=== PATIENT | male | born 1945 | race Caucasian/White ===

== ENCOUNTER → 2016-08-10 | Outpatient (CLI) | payer MEDICARE ==
[~2016-08-10] MED LIST: 'zithromax250 MG PO; ACTONEL150 MG PO; AMOXICILLIN500 MG PO; ANTIVERT/2525 M1 PO; ASPIRIN81 MG PO; ATIVAN1 MG PO; ATROVENT I0.5 MG/2.1 INH; BISACODYL LAXATI5 MG PO; BISACODYL5 MG PO; BROVANA15 MCG/2 M INH; CADUET PO; CENTRUM SILVER1 EAC3 PO; CEPHALEXIN500 M1 PO; CLARITIN10 MG PO; COZAAR100 MG PO; DOXYCYCLINE MO100 MG PO; FLONASE 0.05% 121 EA NAS; FLONASE ALLERG9.9 ML NS; FLOVENT HFA10.6 GM IH; FOSAMAX40 MG PO; FOSAMAX70 MG PO; HYDROXYZINE HCL25 M1 PO; LISINOPRIL10 MG PO; LORAZEPAM0.5 MG PO; LOTREL 10 MG-201 CAP PO; MEDROL DOSEPAK4 MG PO; MOBIC15 MG PO; MOTRIN IB200 MG PO; MOTRIN600 MG PO; MUCINEX600 MG PO; NITROSTAT0.4 MG SL; NORTRIPTYLINE10 MG PO; NORTRIPTYLINE25 MG PO; NORVASC5 MG PO; OMEPRAZOLE20 M2 PO; PHENERGAN W/DM120 ML PO; PLAVIX75 MG PO; PRAVASTATIN SOD20 MG PO; PRAVASTATIN SOD40 MG PO; PREDNICOT20 MG PO; QVAR0.08 MG/AC INH; REMERON15 MG PO; SYMBICORT1 AER IH; SYMBICORT1 AER INH; TESSALON PERLE100 M1 PO; TOPROL XL25 MG PO; VENTOLIN 02.5 MG/3 M INH; VIBRAMYCIN100 MG PO; VITAMIN D50000 I2 PO; VITAMIN D50000 I3 PO; Ventolin 02.5 MG/3 M INH; ZANTAC150 MG PO; ZITHROMAX Z PA250 MG PO; ZYRTEC10 MG PO
== END | disposition home or self-care (01) ==
LOC: RAD 15:35
DX: M25.561 Pain in right knee (principal)

== ENCOUNTER → 2017-06-01 | Outpatient (CLI) | payer MEDICARE ==
[2017-06-01 10:11] LABS: BUN 16 mg/dl (7-24); CHLORIDE 100 mmol/L (98-107); CHOLESTEROL 180 mg/dL (<200); CREATININE 1.27 mg/dL (0.70-1.30); POTASSIUM 4.1 mmol/L (3.5-5.1); SGOT/AST 16 IU/L (3-35); SGPT/ALT 17 U/L (12-78); SODIUM 136 mmol/L (136-145); TRIGLYCERIDES 138 mg/dl (<150); VLDL CHOLESTEROL 28 mg/dL (6-40)
[2017-06-01 10:12] LABS: HDL CHOLESTEROL 63 mg/dl (40-60); LDL CHOLESTEROL 89 mg/dL (9-159)
== END | disposition home or self-care (01) ==
LOC: LAB 09:21
PROVIDERS: Internal Medicine Cardiovascular Disease
DX: I10 Essential (primary) hypertension (principal)

== ENCOUNTER → 2017-09-07 | Outpatient (CLI) | payer MEDICARE ==
[2017-09-07 09:58] LABS: BUN 11 mg/dl (7-24); CHLORIDE 104 mmol/L (98-107); CREATININE 1.14 mg/dL (0.70-1.30); POTASSIUM 4.3 mmol/L (3.5-5.1); SODIUM 140 mmol/L (136-145)
== END | disposition home or self-care (01) ==
LOC: LAB 09:06
PROVIDERS: Internal Medicine Cardiovascular Disease
DX: I10 Essential (primary) hypertension (principal)

== ENCOUNTER → 2018-02-22 | Outpatient (CLI) | payer MEDICARE ==
[2018-02-22 09:46] LABS: BASO # 0.1 10*3/uL (0.0-0.1); BASO % 1.2 % (0.0-1.0); EOS # 0.5 10*3/uL (0.0-0.4); EOS % 8.5 % (1.0-4.0); HEMATOCRIT 45.8 % (42.0-52.0); HEMOGLOBIN 15.1 g/dl (14.0-18.0); LYMPH # 1.2 10*3/uL (1.3-4.4); LYMPH % 20.1 % (27.0-41.0); MEAN CELL VOLUME 94.8 fl (80.0-94.0); MEAN CORPUSCULAR HGB 31.3 pg (27.0-31.0); MEAN PLATELET VOLUME 8.9 fl (9.6-12.3); MONO # 0.5 10*3/uL (0.1-1.0); MONO % 8.6 % (3.0-9.0); NEUT # 3.7 10*3/uL (2.3-7.9); NEUT % 61.3 % (47.0-73.0); PLATELET COUNT AUTOMATED 252 10*3/uL (130-400); RED BLOOD COUNT 4.83 10*6/uL (4.50-5.90); RED CELL DISTRI WIDTH 12.2 % (0-14.5)
[2018-02-22 10:09] LABS: BUN 11 mg/dl (7-24); CHLORIDE 100 mmol/L (98-107); CHOLESTEROL 164 mg/dL (<200); CREATININE 1.14 mg/dL (0.70-1.30); POTASSIUM 4.1 mmol/L (3.5-5.1); SGOT/AST 17 IU/L (3-35); SGPT/ALT 19 U/L (12-78); SODIUM 137 mmol/L (136-145); TRIGLYCERIDES 99 mg/dl (<150); VLDL CHOLESTEROL 20 mg/dL (6-40)
[2018-02-22 10:10] LABS: HDL CHOLESTEROL 60 mg/dl (40-60); LDL CHOLESTEROL 84 mg/dL (9-159)
== END | disposition home or self-care (01) ==
LOC: LAB 08:51
PROVIDERS: Internal Medicine Cardiovascular Disease
DX: I10 Essential (primary) hypertension (principal); I25.10 Atherosclerotic heart disease of native coronary artery without angina pectoris

== ENCOUNTER 2018-03-20 | Emergency (ER) | payer MEDICARE | END 2018-03-20 10:40 | disposition home or self-care (01) | DX: H11.31 Conjunctival hemorrhage, right eye (principal); Z79.82 Long term (current) use of aspirin; Z79.899 Other long term (current) drug therapy ==

== ENCOUNTER → 2019-03-02 | Outpatient (CLI) | payer MEDICARE ==
[2019-03-02 10:38] LABS: BUN 12 mg/dl (7-24); CHLORIDE 103 mmol/L (98-107); CREATININE 1.12 mg/dL (0.70-1.30); POTASSIUM 4.1 mmol/L (3.5-5.1); SODIUM 138 mmol/L (136-145)
== END | disposition home or self-care (01) ==
LOC: LAB 09:37
PROVIDERS: Internal Medicine Cardiovascular Disease
DX: I25.10 Atherosclerotic heart disease of native coronary artery without angina pectoris (principal)

== ENCOUNTER 2019-05-05 15:02 | Emergency (ER) | payer MEDICARE ==
[~2019-05-05] VITALS: Wt 49.0 kg
[2019-05-05 17:44] LABS: BASO # 0.1 10*3/uL (0.0-0.1); BASO % 0.5 % (0.0-1.0); EOS # 0.3 10*3/uL (0.0-0.4); EOS % 1.7 % (1.0-4.0); HEMATOCRIT 42.4 % (42.0-52.0); HEMOGLOBIN 13.9 g/dl (14.0-18.0); LYMPH # 0.9 10*3/uL (1.3-4.4); LYMPH % 6.4 % (27.0-41.0); MEAN CORPUSCULAR HGB 31.8 pg (27.0-31.0); MEAN CORPUSCULAR HGB CONC 32.8 g/dl (33.0-37.0); MEAN PLATELET VOLUME 8.9 fl (9.6-12.3); MONO # 0.6 10*3/uL (0.1-1.0); MONO % 3.9 % (3.0-9.0); NEUT # 12.7 10*3/uL (2.3-7.9); NEUT % 87.1 % (47.0-73.0); PLATELET COUNT AUTOMATED 260 10*3/uL (130-400); RED BLOOD COUNT 4.37 10*6/uL (4.50-5.90); RED CELL DISTRI WIDTH 12.8 % (0-14.5); WHITE BLOOD COUNT 14.6 10*3/uL (4.8-10.8)
[2019-05-05 17:55] LABS: ACT PARTIAL THROMBO TIME 24.2 SECONDS (20.0-32.1); BUN 15 mg/dl (7-24); CHLORIDE 106 mmol/L (98-107); CREATININE 1.32 mg/dL (0.70-1.30); INTERNATIONAL NORM RATIO 0.9 (2.0-3.5); POTASSIUM 4.4 mmol/L (3.5-5.1); SODIUM 138 mmol/L (136-145)
== END 2019-05-05 18:50 | disposition short-term general hospital (02) ==
LOC: ED 15:02
PROVIDERS: Nurse Practitioner Family
DX: R04.0 Epistaxis (principal); J44.9 Chronic obstructive pulmonary disease, unspecified; K21.9 Gastro-esophageal reflux disease without esophagitis; I25.10 Atherosclerotic heart disease of native coronary artery without angina pectoris; Z79.899 Other long term (current) drug therapy; Z79.2 Long term (current) use of antibiotics; F41.9 Anxiety disorder, unspecified; M19.90 Unspecified osteoarthritis, unspecified site

== ENCOUNTER 2019-05-10 08:08 | Inpatient (IN) | payer MEDICARE ==
[~2019-05-10] VITALS: Ht 170.2 cm; Wt 56.4 kg
[2019-05-10] VITALS (7 sets, daily range): BP systolic 96–146; BP diastolic 50–76
[2019-05-10 09:13] LABS: BASO % 0.3 % (0.0-1.0); EOS # 0.3 10*3/uL (0.0-0.4); EOS % 1.7 % (1.0-4.0); HEMOGLOBIN 9.2 g/dl (14.0-18.0); LYMPH % 6.8 % (27.0-41.0); MEAN CELL VOLUME 95.9 fl (80.0-94.0); MEAN CORPUSCULAR HGB 31.5 pg (27.0-31.0); MEAN CORPUSCULAR HGB CONC 32.9 g/dl (33.0-37.0); MEAN PLATELET VOLUME 8.9 fl (9.6-12.3); MONO # 1.3 10*3/uL (0.1-1.0); MONO % 9.1 % (3.0-9.0); NEUT % 81.2 % (47.0-73.0); PLATELET COUNT AUTOMATED 331 10*3/uL (130-400); RED BLOOD COUNT 2.92 10*6/uL (4.50-5.90); RED CELL DISTRI WIDTH 13.3 % (0-14.5); WHITE BLOOD COUNT 14.7 10*3/uL (4.8-10.8)
[2019-05-10 09:24] LABS: ACT PARTIAL THROMBO TIME 27.6 SECONDS (20.0-32.1); INTERNATIONAL NORM RATIO 0.9 (2.0-3.5)
[2019-05-10 09:24] LABS: ALBUMIN 3.2 gm/dl (3.1-4.5); CREATININE 2.25 mg/dL (0.70-1.30); TOTAL PROTEIN 6.8 gm/dL (6.4-8.2)
[2019-05-10 09:25] LABS: BILIRUBIN NEGATIVE (NEGATIVE); BLOOD TRACE-INTACT (NEGATIVE); CLARITY CLEAR (CLEAR); COLOR YELLOW (YELLOW); GLUCOSE NEGATIVE (NEGATIVE); KETONE NEGATIVE (NEGATIVE)
[2019-05-10 09:26] LABS: BACTERIA TRACE; LEUKO ESTERASE NEGATIVE (NEGATIVE); MUCOUS TRACE; NITRITE NEGATIVE (NEGATIVE); PH 5.5 (5.0-9.0); UROBILINOGEN 0.2 E.U./dl (0.2-1.0)
--- NOTE | 2019-05-10 10:47 | NUR ---
PATIENT NOTED TO HAVE 1700 IN WELDON BAG, PT STATES THAT HE FEELS SO MUCH BETTER. PATIENT WAS ASLEEP PRIOR TO THIS NURSE ENTERING ROOM. DENIES THE NEED OF ANYTHING AT THIS TIME. VITALS STABLE. CALL LIGHT WITHIN REACH.
--- NOTE | 2019-05-10 12:15 | NUR ---
Time: 1214 A 73 year old MALE admitted to 5E under services of TY BERNARD DO. Pt. arrived via stretcher from ER. Chief complaint: STOMACH PAIN AND NOSE BLEED. INITIAL ASSESSMENT WAS COMPLETED. PT HAS NO COMPLAINTS AT THIS TIME. HOME MEDICATION LIST WAS COMPLETED. [place]
[2019-05-10] MEDS ORDERED: MAGNESIUM200 MG PO (12:34)
[2019-05-10] MEDS ORDERED: VITAMIN D32000 UNI1 PO (12:36)
--- NOTE | 2019-05-10 17:37 | NUR ---
MET WITH CLIENT AT HIS REQUEST HE IS A CLIENT IN MY OFFICE, I DID VISIT HIM AND SO DID HIS CM IRMA, HE REPORTS HE FEELS A LITTLE BUT BETTER, CLIENT RESIDES [place], HE HAS NO FAMILY. HE WAS JUST DC ON TUESDAY FROM [facility] FOR A NOSE BLEED. PROVIDED CLIENT WITH SUPPORT.
--- NOTE | 2019-05-10 17:43 | NUR ---
CALLED DR. BOOTH AND NOIFIED HIM THAT HOME MEDS WERE READY TO BE ORDERED.
--- NOTE | 2019-05-10 20:48 | NUR ---
24 HR chart check completed.
--- NOTE | 2019-05-10 21:00 | NUR ---
RESTING IN BED WITH NO DISTRESS NOTED. RESPIRATIONS EASY. LUNGS DIMINISHED, CLEAR. PULSE OX 100% RA. ABD SOFT WITH HYPOACTIVE BOWEL SOUNDS, DENIES ABD PAIN. WELDON PATENT. +2 PITTNG BLE. CALL LIGHT WITHIN REACH. NO VOICED COMPLAINTS
[2019-05-11] VITALS: BP 114/62
--- NOTE | 2019-05-11 | NUR ---
SLEEPING. NO DISTRESS NOTED. RESPIRATIONS EASY. VSS. IV FLUIDS MAINTAINED. CALL LIGHT WITHIN REACH
--- NOTE | 2019-05-11 06:00 | NUR ---
SLEPT THROUGHOUT NIGHT WITH NO DISTRESS NOTED. RESPIRATIONS EASY. IV FLUIDS MAINTAINED. CALL LIGHT WITHIN REACH. NO VOICED COMPLAINTS THIS SHIFT
[2019-05-11 06:21] LABS: BASO % 0.4 % (0.0-1.0); EOS # 0.4 10*3/uL (0.0-0.4); EOS % 4.6 % (1.0-4.0); HEMATOCRIT 22.1 % (42.0-52.0); HEMOGLOBIN 7.2 g/dl (14.0-18.0); LYMPH % 12.7 % (27.0-41.0); MEAN CELL VOLUME 97.8 fl (80.0-94.0); MEAN CORPUSCULAR HGB 31.9 pg (27.0-31.0); MEAN CORPUSCULAR HGB CONC 32.6 g/dl (33.0-37.0); MEAN PLATELET VOLUME 9.1 fl (9.6-12.3); MONO # 0.7 10*3/uL (0.1-1.0); MONO % 8.3 % (3.0-9.0); NEUT # 5.9 10*3/uL (2.3-7.9); NEUT % 73.1 % (47.0-73.0); PLATELET COUNT AUTOMATED 244 10*3/uL (130-400); RED BLOOD COUNT 2.26 10*6/uL (4.50-5.90); RED CELL DISTRI WIDTH 13.6 % (0-14.5)
[2019-05-11 06:34] LABS: BUN 17 mg/dl (7-24); CHLORIDE 107 mmol/L (98-107); CHOLESTEROL 93 mg/dL (<200); PHOSPHOROUS 2.9 mg/dL (2.5-4.9); POTASSIUM 3.2 mmol/L (3.5-5.1); SODIUM 138 mmol/L (136-145); TRIGLYCERIDES 75 mg/dl (<150); VLDL CHOLESTEROL 15 mg/dL (6-40)
[2019-05-11 06:45] LABS: CREATININE 1.23 mg/dL (0.70-1.30); HDL CHOLESTEROL 48 mg/dl (40-60); LDL CHOLESTEROL 30 mg/dL (9-159)
[2019-05-11 08:00] VITALS: BP 110/60; BP 92/59
--- NOTE | 2019-05-11 08:15 | NUR ---
Manager Harbor in to talk to patient. Patient states lives at home alone with his family/friends checking in on him. There are 0 steps in the home. Physician: Ender Severino Pharmacy: [facility] Home health services: none Patient's level of ADLs: INDEPENDENT Patient has working utilities: yes DME: none Follow-up physician's appointment after d/c: will be made by the hospitalist nurse director upon discharge Does patient want to access PORTAL?: no Discharge plan discussed with patient. He lives at home with his family/friends checking in on him. He states he is independent in his ADLs and ambulation. When asked if he uses a walker or a cane, he states "no I walk with my legs." Discussed home health care services and he denies any home needs at this time. When medically stable he will be discharged to home. He states either Sarah or Arina will provide transportation on discharge. ANTOLIN RBOWNLEE
[2019-05-11 12:00] VITALS: BP 113/68
[2019-05-11 12:14] LABS: HEMATOCRIT 22.8 % (42.0-52.0); HEMOGLOBIN 7.6 g/dl (14.0-18.0)
[2019-05-11 16:00] VITALS: BP 106/55
[2019-05-11 20:00] VITALS: BP 126/59
--- NOTE | 2019-05-11 20:00 | NUR ---
Patient resting quietly with no c/o discomfort. Respirations easy and regular. Vital signs stable. No overt distress. ARIADNA HIDALGO
[2019-05-12] VITALS: BP 136/67
--- NOTE | 2019-05-12 05:39 | NUR ---
24 HR chart check completed.
[2019-05-12 06:22] LABS: BASO % 0.4 % (0.0-1.0); EOS # 0.5 10*3/uL (0.0-0.4); EOS % 5.7 % (1.0-4.0); HEMATOCRIT 22.2 % (42.0-52.0); HEMOGLOBIN 7.4 g/dl (14.0-18.0); LYMPH # 0.9 10*3/uL (1.3-4.4); MEAN CELL VOLUME 95.7 fl (80.0-94.0); MEAN CORPUSCULAR HGB 31.9 pg (27.0-31.0); MEAN CORPUSCULAR HGB CONC 33.3 g/dl (33.0-37.0); MEAN PLATELET VOLUME 8.7 fl (9.6-12.3); MONO # 0.7 10*3/uL (0.1-1.0); MONO % 8.6 % (3.0-9.0); NEUT % 73.2 % (47.0-73.0); PLATELET COUNT AUTOMATED 261 10*3/uL (130-400); RED BLOOD COUNT 2.32 10*6/uL (4.50-5.90); RED CELL DISTRI WIDTH 13.7 % (0-14.5); RETICULOCYTE % 3.97 % (0.50-2.50); WHITE BLOOD COUNT 8.1 10*3/uL (4.8-10.8)
[2019-05-12 06:52] LABS: ALBUMIN 2.4 gm/dl (3.1-4.5); BUN 12 mg/dl (7-24); CHLORIDE 109 mmol/L (98-107); CREATININE 0.96 mg/dL (0.70-1.30); IRON 17 ug/dL (65-175); POTASSIUM 3.9 mmol/L (3.5-5.1); SGOT/AST 16 IU/L (3-35); SGPT/ALT 13 U/L (12-78); SODIUM 139 mmol/L (136-145); TOTAL IRON BINDING CAPACITY 211 ug/dl (250-450); TOTAL PROTEIN 5.5 gm/dL (6.4-8.2)
[2019-05-12 06:53] LABS: ALKALINE PHOSPHATASE 57 U/L (45-117)
[2019-05-12 07:59] LABS: FERRITIN 44.7 ng/mL (22.0-322.0)
[2019-05-12 08:00] VITALS: BP 138/79
[2019-05-12] MEDS ORDERED: FINASTERIDE5 M1 PO (10:23)
[2019-05-12] MEDS ORDERED: TAMSULOSIN HCL0.4 MG PO (10:23)
--- NOTE | 2019-05-12 11:31 | NUR ---
IRMA LANE PATIENTS SEAMER WILL BE ABLE TO SCHEDULE A FOLLOW UP APPT FOR UROLOGY ON TuesdayMAY 14. LIST OF AVAILABLE UROLOGIST SENT HOME WITH PATIENT
[2019-05-12 12:00] VITALS: BP 142/68
--- NOTE | 2019-05-12 13:32 | NUR ---
Discharge instructions reviewed with patient/family. Patient receptive and verbalizes understanding. Follow-up care arranged. Written instructions given to patient/family. PT DEMONSTRATED PROPER TECHNIQUE ON HOW TO EMPTY HIS WELDON LEG BAG. APOLLO RAI
== END 2019-05-12 13:30 | disposition home or self-care (01) | DRG 725 ==
LOC: ED 08:08 → 5E 11:30 → EDHOLD 11:30 → 5E 11:32
PROVIDERS: Emergency Medicine; Internal Medicine; Registered Nurse; ADMIT Internal Medicine
DX: N40.1 Benign prostatic hyperplasia with lower urinary tract symptoms (principal); N17.0 Acute kidney failure with tubular necrosis; E87.1 Hypo-osmolality and hyponatremia; E44.0 Moderate protein-calorie malnutrition; Z68.1 Body mass index [BMI] 19.9 or less, adult; R33.8 Other retention of urine; R39.14 Feeling of incomplete bladder emptying; I10 Essential (primary) hypertension; J44.9 Chronic obstructive pulmonary disease, unspecified; K21.9 Gastro-esophageal reflux disease without esophagitis; E87.6 Hypokalemia; D50.0 Iron deficiency anemia secondary to blood loss (chronic); I25.10 Atherosclerotic heart disease of native coronary artery without angina pectoris; Z95.5 Presence of coronary angioplasty implant and graft; Z79.82 Long term (current) use of aspirin; Z79.899 Other long term (current) drug therapy

== ENCOUNTER 2019-06-04 12:38 | Inpatient (IN) | payer MEDICARE ==
[~2019-06-04] VITALS: Ht 165.1 cm; Wt 58.1 kg
[~2019-06-04 12:38] MED LIST changes: +FINASTERIDE5 M1 PO; +MAGNESIUM200 MG PO; +TAMSULOSIN HCL0.4 MG PO; +VITAMIN D32000 UNI1 PO
[2019-06-04 12:39] VITALS: BP 114/79
[2019-06-04 13:32] VITALS: BP 97/50
[2019-06-04 13:38] LABS: HEMATOCRIT 28.9 % (42.0-52.0); HEMOGLOBIN 9.6 g/dl (14.0-18.0); MEAN CELL VOLUME 87.3 fl (80.0-94.0); MEAN CORPUSCULAR HGB CONC 33.2 g/dl (33.0-37.0); MEAN PLATELET VOLUME 9.2 fl (9.6-12.3); PLATELET COUNT AUTOMATED 321 10*3/uL (130-400); RED BLOOD COUNT 3.31 10*6/uL (4.50-5.90); RED CELL DISTRI WIDTH 15.3 % (0-14.5)
[2019-06-04 13:48] LABS: ACT PARTIAL THROMBO TIME 32.9 SECONDS (20.0-32.1)
[2019-06-04 13:55] LABS: ALBUMIN 2.3 gm/dl (3.1-4.5); ALKALINE PHOSPHATASE 116 U/L (45-117); BUN 87 mg/dl (7-24); CHLORIDE 87 mmol/L (98-107); CREATININE 5.95 mg/dL (0.70-1.30); LIPASE 168 U/L (73-393); POTASSIUM 5.1 mmol/L (3.5-5.1); SGOT/AST 25 IU/L (3-35); SGPT/ALT 32 U/L (12-78); SODIUM 120 mmol/L (136-145); TOTAL PROTEIN 7.4 gm/dL (6.4-8.2)
[2019-06-04 14:00] LABS: BURR CELLS MODERATE; PLATELET SUFFICIENCY NORMAL (NORMAL); TOTAL CELLS COUNTED 100 #CELLS; TOXIC GRANULATION MODERATE; TROPONIN I < 0.015 ng/ml (<0.045)
[2019-06-04 14:21] VITALS: BP 102/66
[2019-06-04 17:00] VITALS: BP 96/63
[2019-06-04 17:51] LABS: CREATININE 6.01 mg/dL (0.70-1.30); POTASSIUM 5.3 mmol/L (3.5-5.1)
[2019-06-04 18:41] LABS: BILIRUBIN NEGATIVE (NEGATIVE); CLARITY TURBID (CLEAR); COLOR YELLOW (YELLOW); GLUCOSE NEGATIVE (NEGATIVE); KETONE NEGATIVE (NEGATIVE)
[2019-06-04 18:42] LABS: BLOOD 2+ (NEGATIVE); LEUKO ESTERASE 3+ (NEGATIVE); NITRITE NEGATIVE (NEGATIVE); UROBILINOGEN 0.2 E.U./dl (0.2-1.0)
[2019-06-04 18:46] LABS: BACTERIA 4+; WBC TNTC wbc/hpf (0-5)
[2019-06-04 18:50] VITALS: BP 127/81
[2019-06-04] MEDS ORDERED: PLAVIX75 M1 PO (19:13)
[2019-06-05] VITALS: BP 120/80
[2019-06-05 03:19] LABS: HEMOGLOBIN 9.4 g/dl (14.0-18.0); MEAN CELL VOLUME 87.2 fl (80.0-94.0); MEAN CORPUSCULAR HGB 29.3 pg (27.0-31.0); MEAN CORPUSCULAR HGB CONC 33.6 g/dl (33.0-37.0); MEAN PLATELET VOLUME 8.8 fl (9.6-12.3); PLATELET COUNT AUTOMATED 329 10*3/uL (130-400); RED BLOOD COUNT 3.21 10*6/uL (4.50-5.90); RED CELL DISTRI WIDTH 15.5 % (0-14.5); WHITE BLOOD COUNT 24.7 10*3/uL (4.8-10.8)
[2019-06-05 03:34] LABS: CREATININE 5.74 mg/dL (0.70-1.30); FREE T4 0.92 ng/dl (0.76-1.46); TOTAL PROTEIN 6.6 gm/dL (6.4-8.2)
[2019-06-05 03:57] LABS: THYROID STIM HORMONE (HS) 1.01 uIU/ml (0.358-4.75)
[2019-06-05 04:37] LABS: ATYPICAL LYMPHS 1 % (0-0); PLATELET SUFFICIENCY NORMAL (NORMAL); TOTAL CELLS COUNTED 100 #CELLS
[2019-06-05 05:37] LABS: URINE CREATININE RANDOM 60.3 mg/dL
[2019-06-05 09:00] VITALS: BP 117/68
[2019-06-05 12:00] VITALS: BP 129/74
[2019-06-05 13:10] LABS: CREATININE 5.51 mg/dL (0.70-1.30); PHOSPHOROUS 5.7 mg/dL (2.5-4.9); POTASSIUM 4.6 mmol/L (3.5-5.1)
[2019-06-05 16:00] VITALS: BP 122/74
[2019-06-05 18:33] LABS: ALBUMIN 1.7 gm/dl (3.1-4.5); CREATININE 5.21 mg/dL (0.70-1.30); PHOSPHOROUS 5.5 mg/dL (2.5-4.9); POTASSIUM 4.4 mmol/L (3.5-5.1)
[2019-06-05 20:00] VITALS: BP 111/73
[2019-06-06] VITALS: BP 102/76
[2019-06-06 00:47] LABS: ALBUMIN 1.8 gm/dl (3.1-4.5); CREATININE 5.12 mg/dL (0.70-1.30); PHOSPHOROUS 5.6 mg/dL (2.5-4.9); POTASSIUM 4.4 mmol/L (3.5-5.1)
[2019-06-06 06:30] LABS: HEMATOCRIT 26.6 % (42.0-52.0); HEMOGLOBIN 8.7 g/dl (14.0-18.0); MEAN CELL VOLUME 89.3 fl (80.0-94.0); MEAN CORPUSCULAR HGB 29.2 pg (27.0-31.0); MEAN CORPUSCULAR HGB CONC 32.7 g/dl (33.0-37.0); MEAN PLATELET VOLUME 9.1 fl (9.6-12.3); PLATELET COUNT AUTOMATED 316 10*3/uL (130-400); RED BLOOD COUNT 2.98 10*6/uL (4.50-5.90); RED CELL DISTRI WIDTH 15.9 % (0-14.5); WHITE BLOOD COUNT 26.2 10*3/uL (4.8-10.8)
[2019-06-06 06:54] LABS: CREATININE 4.87 mg/dL (0.70-1.30); POTASSIUM 4.4 mmol/L (3.5-5.1)
[2019-06-06 07:13] LABS: BURR CELLS FEW; PLATELET SUFFICIENCY NORMAL (NORMAL); TOTAL CELLS COUNTED 100 #CELLS; TOXIC GRANULATION MODERATE
[2019-06-06 08:00] VITALS: BP 119/100
[2019-06-06 10:26] VITALS: BP 100/60
[2019-06-06 12:00] VITALS: BP 121/83
[2019-06-06 16:00] VITALS: BP 120/76
[2019-06-06 16:11] LABS: ALBUMIN 1.8 gm/dl (3.1-4.5); CREATININE 4.67 mg/dL (0.70-1.30); PHOSPHOROUS 4.8 mg/dL (2.5-4.9); POTASSIUM 4.3 mmol/L (3.5-5.1)
[2019-06-06 16:34] LABS: URINE CHLORIDE, RANDOM < 10 mmol/L
[2019-06-06 20:00] VITALS: BP 105/58
[2019-06-07] VITALS: BP 100/67
[2019-06-07 06:10] LABS: HEMATOCRIT 27.1 % (42.0-52.0); HEMOGLOBIN 8.9 g/dl (14.0-18.0); MEAN CELL VOLUME 88.9 fl (80.0-94.0); MEAN CORPUSCULAR HGB 29.2 pg (27.0-31.0); MEAN CORPUSCULAR HGB CONC 32.8 g/dl (33.0-37.0); MEAN PLATELET VOLUME 8.9 fl (9.6-12.3); PLATELET COUNT AUTOMATED 357 10*3/uL (130-400); RED BLOOD COUNT 3.05 10*6/uL (4.50-5.90); RED CELL DISTRI WIDTH 16.1 % (0-14.5); WHITE BLOOD COUNT 22.6 10*3/uL (4.8-10.8)
[2019-06-07 06:38] LABS: ALBUMIN 1.8 gm/dl (3.1-4.5); CREATININE 4.4 mg/dL (0.70-1.30); PLATELET SUFFICIENCY NORMAL (NORMAL); POTASSIUM 4.5 mmol/L (3.5-5.1); TOTAL CELLS COUNTED 100 #CELLS; TOTAL PROTEIN 6.3 gm/dL (6.4-8.2)
[2019-06-07 08:00] VITALS: BP 98/76
[2019-06-07 09:00] VITALS: BP 112/68
[2019-06-07 12:00] VITALS: BP 115/67
[2019-06-07 16:00] VITALS: BP 126/85
[2019-06-07 20:00] VITALS: BP 129/68
[2019-06-08] VITALS: BP 132/67
[2019-06-08 06:12] LABS: HEMATOCRIT 25.9 % (42.0-52.0); HEMOGLOBIN 8.5 g/dl (14.0-18.0); MEAN CELL VOLUME 86.9 fl (80.0-94.0); MEAN CORPUSCULAR HGB 28.5 pg (27.0-31.0); MEAN CORPUSCULAR HGB CONC 32.8 g/dl (33.0-37.0); MEAN PLATELET VOLUME 8.6 fl (9.6-12.3); PLATELET COUNT AUTOMATED 389 10*3/uL (130-400); RED BLOOD COUNT 2.98 10*6/uL (4.50-5.90); RED CELL DISTRI WIDTH 16.3 % (0-14.5); WHITE BLOOD COUNT 17.2 10*3/uL (4.8-10.8)
[2019-06-08 06:21] LABS: CREATININE 3.96 mg/dL (0.70-1.30); POTASSIUM 4.6 mmol/L (3.5-5.1)
[2019-06-08 07:09] LABS: ATYPICAL LYMPHS 1 % (0-0); PLATELET SUFFICIENCY NORMAL (NORMAL); SCHISTOCYTES FEW; TARGET CELLS FEW; TOTAL CELLS COUNTED 100 #CELLS
[2019-06-08 07:10] LABS: POLYCHROMASIA SLIGHT; TOXIC GRANULATION SLIGHT
[2019-06-08 08:51] VITALS: BP 124/78
[2019-06-08] MEDS ORDERED: LEVOFLOXACIN500 MG PO (11:05)
== END 2019-06-08 12:46 | disposition home or self-care (01) | DRG 871 ==
LOC: ED 12:38 → 5E 15:31 → 4E 15:31 → EDHOLD 15:31 → 5E 18:01 → 4E 06-05 18:39
PROVIDERS: Emergency Medicine; Family Medicine; Internal Medicine; Internal Medicine Nephrology; Registered Nurse; Student in an Organized Health Care Education/Training Program; ADMIT Internal Medicine
DX: A41.59 Other Gram-negative sepsis (principal); J18.9 Pneumonia, unspecified organism; N17.0 Acute kidney failure with tubular necrosis; E43 Unspecified severe protein-calorie malnutrition; E87.1 Hypo-osmolality and hyponatremia; N12 Tubulo-interstitial nephritis, not specified as acute or chronic; E87.8 Other disorders of electrolyte and fluid balance, not elsewhere classified; E83.41 Hypermagnesemia; R73.9 Hyperglycemia, unspecified; I10 Essential (primary) hypertension; K21.9 Gastro-esophageal reflux disease without esophagitis; I25.10 Atherosclerotic heart disease of native coronary artery without angina pectoris; N40.0 Benign prostatic hyperplasia without lower urinary tract symptoms; D64.9 Anemia, unspecified; E83.39 Other disorders of phosphorus metabolism; N39.9 Disorder of urinary system, unspecified; E87.5 Hyperkalemia; Z95.5 Presence of coronary angioplasty implant and graft; Z79.899 Other long term (current) drug therapy; J43.9 Emphysema, unspecified; Z68.21 Body mass index [BMI] 21.0-21.9, adult

== ENCOUNTER → 2019-07-30 | Outpatient (CLI) | payer MEDICARE ==
[~2019-07-30] MED LIST changes: +LEVOFLOXACIN500 MG PO; +PLAVIX75 M1 PO
[2019-07-30 13:37] LABS: BACTERIA 2+; BILIRUBIN NEGATIVE (NEGATIVE); BLOOD TRACE-INTACT (NEGATIVE); CLARITY SL CLOUDY (CLEAR); COLOR YELLOW (YELLOW); GLUCOSE NEGATIVE (NEGATIVE); KETONE NEGATIVE (NEGATIVE); LEUKO ESTERASE 3+ (NEGATIVE); MUCOUS TRACE; NITRITE POSITIVE (NEGATIVE); SPECIFIC GRAVITY 1.005 (1.005-1.030); UROBILINOGEN 0.2 E.U./dl (0.2-1.0)
[2019-07-30 13:52] LABS: CREATININE 1.58 mg/dL (0.70-1.30); POTASSIUM 4.2 mmol/L (3.5-5.1)
== END | disposition home or self-care (01) ==
LOC: LAB 12:24
PROVIDERS: Urology
DX: J43.9 Emphysema, unspecified (principal); Z01.818 Encounter for other preprocedural examination

== ENCOUNTER → 2019-10-02 | Outpatient (CLI) | payer MEDICARE | END | disposition home or self-care (01) | LOC: RAD 15:32 | DX: J43.9 Emphysema, unspecified (principal) ==

== ENCOUNTER → 2019-11-12 | Outpatient (CLI) | payer MEDICARE | END | disposition home or self-care (01) | LOC: LAB 12:06 | DX: N40.1 Benign prostatic hyperplasia with lower urinary tract symptoms (principal) ==

== ENCOUNTER → 2019-12-06 | Outpatient (CLI) | payer MEDICARE | END | disposition home or self-care (01) | LOC: RAD 12:11 | PROVIDERS: ATTEND Physician Assistant | DX: J43.8 Other emphysema (principal); I25.10 Atherosclerotic heart disease of native coronary artery without angina pectoris ==

== ENCOUNTER → 2020-02-29 | Outpatient (CLI) | payer MEDICARE ==
[2020-02-29 10:15] LABS: CREATININE 1.73 mg/dL (0.70-1.30); POTASSIUM 4.1 mmol/L (3.5-5.1)
== END | disposition home or self-care (01) ==
LOC: LAB 09:24
PROVIDERS: ATTEND Registered Nurse
DX: I10 Essential (primary) hypertension (principal); E87.1 Hypo-osmolality and hyponatremia; R33.8 Other retention of urine

== ENCOUNTER → 2020-06-13 | Outpatient (CLI) | payer MEDICARE ==
[2020-06-13 10:37] LABS: BASO # 0.1 10*3/uL (0.0-0.1); BASO % 0.7 % (0.0-1.0); EOS # 0.4 10*3/uL (0.0-0.4); EOS % 6.3 % (1.0-4.0); HEMATOCRIT 44.3 % (42.0-52.0); LYMPH % 14.1 % (27.0-41.0); MEAN CELL VOLUME 90.6 fl (80.0-94.0); MEAN CORPUSCULAR HGB CONC 32.1 g/dl (33.0-37.0); MEAN PLATELET VOLUME 8.6 fl (9.6-12.3); MONO # 0.5 10*3/uL (0.1-1.0); MONO % 7.6 % (3.0-9.0); NEUT # 4.8 10*3/uL (2.3-7.9); NEUT % 70.9 % (47.0-73.0); PLATELET COUNT AUTOMATED 246 10*3/uL (130-400); RED BLOOD COUNT 4.89 10*6/uL (4.50-5.90); RED CELL DISTRI WIDTH 15.1 % (0-14.5); WHITE BLOOD COUNT 6.7 10*3/uL (4.8-10.8)
[2020-06-13 11:05] LABS: ALBUMIN 3.7 gm/dl (3.1-4.5); CREATININE 1.55 mg/dL (0.70-1.30)
[2020-06-13 11:45] LABS: FERRITIN 13.5 ng/mL (22.0-322.0); PTH INTACT 73.9 pg/mL (18.5-88.0); VITAMIN D, 25-HYDROXY 34.9 ng/mL (30-100)
== END | disposition home or self-care (01) ==
LOC: LAB 09:46 → US 10:00
PROVIDERS: ATTEND Internal Medicine Nephrology
DX: N18.32 Chronic kidney disease, stage 3b (principal); N25.81 Secondary hyperparathyroidism of renal origin; D63.1 Anemia in chronic kidney disease; Z79.899 Other long term (current) drug therapy

== ENCOUNTER → 2020-08-04 | Outpatient (CLI) | payer MEDICARE | END | disposition home or self-care (01) | LOC: LAB 11:34 | PROVIDERS: ATTEND Internal Medicine Cardiovascular Disease | DX: I25.10 Atherosclerotic heart disease of native coronary artery without angina pectoris (principal); R68.83 Chills (without fever) ==

== ENCOUNTER → 2020-11-12 | Outpatient (CLI) | payer MEDICARE | END | disposition home or self-care (01) | LOC: LAB 13:04 | PROVIDERS: ATTEND Physician Assistant Medical | DX: N40.1 Benign prostatic hyperplasia with lower urinary tract symptoms (principal) ==

== ENCOUNTER → 2021-01-12 | Outpatient (CLI) | payer MEDICARE ==
[2021-01-12 10:59] LABS: BILIRUBIN Negative (Negative); BLOOD Negative (Negative); CLARITY Clear (Clear); COLOR Yellow (Yellow); GLUCOSE Negative (Negative); KETONE Negative (Negative); LEUKO ESTERASE Negative (Negative); NITRITE Negative (Negative); SPECIFIC GRAVITY <= 1.005 (1.001-1.030); UROBILINOGEN 0.2 E.U./dl (0.0-1.0)
[2021-01-12 11:00] LABS: BASO # 0.1 10*3/uL (0.0-0.1); BASO % 0.9 % (0.0-1.0); EOS # 0.3 10*3/uL (0.0-0.4); EOS % 4.9 % (1.0-4.0); HEMATOCRIT 44.7 % (42.0-52.0); LYMPH # 0.9 10*3/uL (1.3-4.4); LYMPH % 12.5 % (27.0-41.0); MEAN CELL VOLUME 94.7 fl (80.0-94.0); MEAN CORPUSCULAR HGB 30.9 pg (27.0-31.0); MEAN CORPUSCULAR HGB CONC 32.7 g/dl (33.0-37.0); MEAN PLATELET VOLUME 8.6 fl (9.6-12.3); MONO # 0.6 10*3/uL (0.1-1.0); NEUT # 4.9 10*3/uL (2.3-7.9); PLATELET COUNT AUTOMATED 275 10*3/uL (130-400); RED BLOOD COUNT 4.72 10*6/uL (4.50-5.90); RED CELL DISTRI WIDTH 13.4 % (0-14.5); WHITE BLOOD COUNT 6.8 10*3/uL (4.8-10.8)
[2021-01-12 11:05] LABS: URINE CREATININE RANDOM 55.5 mg/dL
[2021-01-12 11:26] LABS: ALBUMIN 3.5 gm/dl (3.1-4.5); BUN 11 mg/dl (7-24); CHLORIDE 102 mmol/L (98-107); CREATININE 1.25 mg/dL (0.70-1.30); IRON 148 ug/dL (65-175); POTASSIUM 4.3 mmol/L (3.5-5.1); SODIUM 134 mmol/L (136-145); TOTAL IRON BINDING CAPACITY 342 ug/dl (250-450)
[2021-01-12 11:31] LABS: FERRITIN 19.7 ng/mL (22.0-322.0); PTH INTACT 65.7 pg/mL (18.5-88.0)
[2021-01-12 11:45] LABS: EPITHELIAL CELLS 0-2
== END | disposition home or self-care (01) ==
LOC: LAB 10:24
PROVIDERS: ATTEND Internal Medicine Nephrology
DX: N18.32 Chronic kidney disease, stage 3b (principal); D63.1 Anemia in chronic kidney disease; N25.81 Secondary hyperparathyroidism of renal origin; Z79.899 Other long term (current) drug therapy

== ENCOUNTER → 2022-04-06 | Outpatient (CLI) | payer MEDICARE ==
[2022-04-06 11:24] LABS: BASO % 0.7 % (0.0-1.0); EOS # 0.3 10*3/uL (0.0-0.4); EOS % 4.7 % (1.0-4.0); HEMATOCRIT 45.6 % (42.0-52.0); LYMPH # 0.9 10*3/uL (1.3-4.4); LYMPH % 14.1 % (27.0-41.0); MEAN CELL VOLUME 98.3 fl (80.0-94.0); MEAN CORPUSCULAR HGB 32.5 pg (27.0-31.0); MEAN CORPUSCULAR HGB CONC 33.1 g/dl (33.0-37.0); MEAN PLATELET VOLUME 8.7 fl (9.6-12.3); MONO # 0.5 10*3/uL (0.1-1.0); NEUT # 4.4 10*3/uL (2.3-7.9); NEUT % 71.8 % (47.0-73.0); PLATELET COUNT AUTOMATED 271 10*3/uL (130-400); RED BLOOD COUNT 4.64 10*6/uL (4.50-5.90); RED CELL DISTRI WIDTH 11.9 % (0-14.5); WHITE BLOOD COUNT 6.1 10*3/uL (4.8-10.8)
[2022-04-06 11:37] LABS: BILIRUBIN Negative (Negative); BLOOD Negative (Negative); CLARITY Clear (Clear); COLOR Yellow (Yellow); GLUCOSE Negative (Negative); KETONE Negative (Negative); LEUKO ESTERASE Negative (Negative); NITRITE Negative (Negative); SPECIFIC GRAVITY <= 1.005 (1.001-1.030); UROBILINOGEN 0.2 E.U./dl (0.0-1.0)
[2022-04-06 11:45] LABS: URINE CREATININE RANDOM 25.31 mg/dL
[2022-04-06 11:48] LABS: BUN 10 mg/dl (9-23); CHLORIDE 98 mmol/L (98-107); POTASSIUM 4.4 mmol/L (3.4-5.1)
[2022-04-06 12:03] LABS: BACTERIA TRACE; WBC 0-2 wbc/hpf (0-5)
== END | disposition home or self-care (01) ==
LOC: LAB 10:44
PROVIDERS: ATTEND Internal Medicine Nephrology
DX: N18.32 Chronic kidney disease, stage 3b (principal); D63.1 Anemia in chronic kidney disease; N25.81 Secondary hyperparathyroidism of renal origin; Z79.899 Other long term (current) drug therapy

== ENCOUNTER 2022-05-04 11:46 | Emergency (ER) | payer MEDICARE ==
[~2022-05-04] VITALS: Wt 54.0 kg
[2022-05-04 12:14] LABS: BASO # 0.1 10*3/uL (0.0-0.1); BASO % 0.7 % (0.0-1.0); EOS # 0.3 10*3/uL (0.0-0.4); HEMATOCRIT 43.6 % (42.0-52.0); LYMPH # 1.2 10*3/uL (1.3-4.4); LYMPH % 16.4 % (27.0-41.0); MEAN CELL VOLUME 97.3 fl (80.0-94.0); MEAN CORPUSCULAR HGB 32.4 pg (27.0-31.0); MEAN CORPUSCULAR HGB CONC 33.3 g/dl (33.0-37.0); MEAN PLATELET VOLUME 8.7 fl (9.6-12.3); MONO # 0.6 10*3/uL (0.1-1.0); MONO % 8.4 % (3.0-9.0); NEUT # 5.1 10*3/uL (2.3-7.9); NEUT % 69.9 % (47.0-73.0); PLATELET COUNT AUTOMATED 262 10*3/uL (130-400); RED BLOOD COUNT 4.48 10*6/uL (4.50-5.90); RED CELL DISTRI WIDTH 11.9 % (0-14.5); WHITE BLOOD COUNT 7.3 10*3/uL (4.8-10.8)
[2022-05-04 12:40] LABS: ALKALINE PHOSPHATASE 78 U/L (46-116); BUN 11 mg/dl (9-23); CHLORIDE 95 mmol/L (98-107); POTASSIUM 4.4 mmol/L (3.4-5.1); SGPT/ALT 10 U/L (10-49); TOTAL PROTEIN 7.7 gm/dL (6.0-8.0)
[2022-05-04] MEDS ORDERED: DOXEPIN HCL10 MG PO (12:40)
[2022-05-04] MEDS ORDERED: SYMB160 INH (12:42)
[2022-05-04] MEDS ORDERED: BETHANECHOL CHL25 MG PO (12:43)
[2022-05-04] MEDS ORDERED: ZESTRIL10 MG PO (12:54)
== END 2022-05-04 13:09 | disposition home or self-care (01) ==
LOC: ED 11:46
PROVIDERS: Emergency Medicine
DX: I10 Essential (primary) hypertension (principal); Z79.899 Other long term (current) drug therapy; Z79.82 Long term (current) use of aspirin

== ENCOUNTER 2022-08-13 13:38 | Emergency (ER) | payer MEDICARE ==
[~2022-08-13 13:38] MED LIST changes: +BETHANECHOL CHL25 MG PO; +DOXEPIN HCL10 MG PO; +SYMB160 INH; +ZESTRIL10 MG PO
== END 2022-08-13 14:04 | disposition home or self-care (01) ==
LOC: ED 13:38
DX: L98.9 Disorder of the skin and subcutaneous tissue, unspecified (principal); J44.9 Chronic obstructive pulmonary disease, unspecified; K21.9 Gastro-esophageal reflux disease without esophagitis; M19.90 Unspecified osteoarthritis, unspecified site; I10 Essential (primary) hypertension; I25.10 Atherosclerotic heart disease of native coronary artery without angina pectoris; F41.9 Anxiety disorder, unspecified; Z98.890 Other specified postprocedural states

== ENCOUNTER → 2023-01-27 | Outpatient (CLI) | payer MEDICARE | END | disposition home or self-care (01) | LOC: RAD 01-26 08:00 | PROVIDERS: ATTEND Specialist | DX: R13.14 Dysphagia, pharyngoesophageal phase (principal); J44.9 Chronic obstructive pulmonary disease, unspecified ==

== ENCOUNTER 2023-09-02 14:40 | Emergency (ER) | payer MEDICARE ==
[~2023-09-02] VITALS: Wt 54.4 kg
[~2023-09-02 14:40] MED LIST changes: +AMOX-CLAV 875-1 EACH PO; +BETHANECHOL CHL50 MG PO; +METOPROLOL SUC100 M1 PO; +OMEPRAZOLE40 MG PO; +PREDNISONE10 MG PO
[2023-09-02] MEDS ORDERED: CLOBETASOL PROPIONATE 30 GM TUBE T ONE (15:15)
== END 2023-09-02 15:48 | disposition home or self-care (01) ==
LOC: ED 14:40
DX: L03.012 Cellulitis of left finger (principal); J44.9 Chronic obstructive pulmonary disease, unspecified; M19.90 Unspecified osteoarthritis, unspecified site; K21.9 Gastro-esophageal reflux disease without esophagitis; I10 Essential (primary) hypertension; I25.10 Atherosclerotic heart disease of native coronary artery without angina pectoris; F41.9 Anxiety disorder, unspecified; Z98.890 Other specified postprocedural states; Z95.5 Presence of coronary angioplasty implant and graft; Z87.891 Personal history of nicotine dependence

== ENCOUNTER 2024-04-30 05:18 | Emergency (ER) | payer MEDICARE ==
[~2024-04-30] VITALS: Ht 177.8 cm; Wt 63.5 kg
[2024-04-30] MEDS ORDERED: diphenhydrAMINE hydrochloride 25 MG CAP PO ONE (05:55)
[2024-04-30] MEDS ORDERED: methylPREDNISolone sod succ 125 MG VIAL IM ONE (05:55)
[2024-04-30] MEDS ORDERED: FAMOTIDINE 20 MG TAB PO ONE (05:55)
== END 2024-04-30 06:20 | disposition home or self-care (01) ==
LOC: ED 05:18
DX: T78.40XA Allergy, unspecified, initial encounter (principal); R21 Rash and other nonspecific skin eruption; J44.9 Chronic obstructive pulmonary disease, unspecified; M19.90 Unspecified osteoarthritis, unspecified site; K21.9 Gastro-esophageal reflux disease without esophagitis; I10 Essential (primary) hypertension; I25.10 Atherosclerotic heart disease of native coronary artery without angina pectoris; F41.9 Anxiety disorder, unspecified; Z98.890 Other specified postprocedural states; Z95.5 Presence of coronary angioplasty implant and graft; Z87.891 Personal history of nicotine dependence; X58.XXXA Exposure to other specified factors, initial encounter

== ENCOUNTER 2024-05-04 10:11 | Emergency (ER) | payer MEDICARE ==
[~2024-05-04] VITALS: Ht 157.4 cm; Wt 48.2 kg
[2024-05-04] MEDS ORDERED: VISTARIL25 MG PO (10:53)
[2024-05-04] MEDS ORDERED: CIPROFLOXACIN2.5 M1 OPH (10:53)
[2024-05-04] MEDS ORDERED: TRIAMCINOLONE430 GM TD (10:53)
== END 2024-05-04 11:16 | disposition home or self-care (01) ==
LOC: ED 10:11
DX: R21 Rash and other nonspecific skin eruption (principal); H10.9 Unspecified conjunctivitis; J44.9 Chronic obstructive pulmonary disease, unspecified; M19.90 Unspecified osteoarthritis, unspecified site; K21.9 Gastro-esophageal reflux disease without esophagitis; I10 Essential (primary) hypertension; I25.10 Atherosclerotic heart disease of native coronary artery without angina pectoris; F41.9 Anxiety disorder, unspecified; Z98.890 Other specified postprocedural states; Z95.5 Presence of coronary angioplasty implant and graft; Z87.891 Personal history of nicotine dependence

== ENCOUNTER 2024-06-12 17:23 | Emergency (ER) | payer MEDICARE ==
[~2024-06-12] VITALS: Ht 167.6 cm; Wt 54.4 kg
[~2024-06-12 17:23] MED LIST changes: +CIPROFLOXACIN2.5 M1 OPH; +TRIAMCINOLONE430 GM TD; +VISTARIL25 MG PO
[2024-06-12] MEDS ORDERED: Albuterol Sulf/Ipratropium 3 ML VIAL NEB ONE (17:45)
[2024-06-12] MEDS ORDERED: methylPREDNISolone sod succ 125 MG VIAL IV ONE (17:45)
[2024-06-12 17:55] LABS: BASO % 0.4 % (0.0-1.0); EOS # 0.1 10*3/uL (0.0-0.4); EOS % 1.3 % (1.0-4.0); HEMATOCRIT 44.2 % (42.0-52.0); MEAN CELL VOLUME 98.7 fl (80.0-94.0); MEAN CORPUSCULAR HGB 32.8 pg (27.0-31.0); MEAN CORPUSCULAR HGB CONC 33.3 g/dl (33.0-37.0); MEAN PLATELET VOLUME 8.6 fl (9.6-12.3); MONO # 0.7 10*3/uL (0.1-1.0); MONO % 7.3 % (3.0-9.0); NEUT # 8.3 10*3/uL (2.3-7.9); NEUT % 82.6 % (47.0-73.0); PLATELET COUNT AUTOMATED 291 10*3/uL (130-400); RED BLOOD COUNT 4.48 10*6/uL (4.50-5.90); RED CELL DISTRI WIDTH 13.6 % (0-14.5)
[2024-06-12 18:17] LABS: BUN 9 mg/dl (9-23); CHLORIDE 97 mmol/L (98-107); POTASSIUM 4.1 mmol/L (3.4-5.1)
[2024-06-12] MEDS ORDERED: PREDNISONE20 M1 PO (20:03)
[2024-06-12] MEDS ORDERED: AVPAK AZITHROM250 M1 PO (20:03)
[2024-06-12] MEDS ORDERED: AZITHROMYCIN 250 MG TAB PO ONE (20:10)
== END 2024-06-12 20:11 | disposition home or self-care (01) ==
LOC: ED 17:23
PROVIDERS: Nurse Practitioner Family
DX: J44.1 Chronic obstructive pulmonary disease with (acute) exacerbation (principal); I10 Essential (primary) hypertension; I25.10 Atherosclerotic heart disease of native coronary artery without angina pectoris; Z79.82 Long term (current) use of aspirin; Z79.899 Other long term (current) drug therapy; Z98.890 Other specified postprocedural states

== ENCOUNTER → 2024-07-24 | Outpatient (CLI) | payer MEDICARE ==
[~2024-07-24] MED LIST changes: +AVPAK AZITHROM250 M1 PO; +PREDNISONE20 M1 PO
[2024-07-24 11:40] LABS: BASO # 0.1 10*3/uL (0.0-0.1); BASO % 0.4 % (0.0-1.0); EOS # 0.1 10*3/uL (0.0-0.4); EOS % 0.5 % (1.0-4.0); HEMATOCRIT 45.8 % (42.0-52.0); MEAN CELL VOLUME 98.1 fl (80.0-94.0); MEAN CORPUSCULAR HGB CONC 33.6 g/dl (33.0-37.0); MEAN PLATELET VOLUME 8.5 fl (9.6-12.3); MONO # 0.8 10*3/uL (0.1-1.0); MONO % 4.9 % (3.0-9.0); NEUT # 13.8 10*3/uL (2.3-7.9); NEUT % 86.1 % (47.0-73.0); PLATELET COUNT AUTOMATED 304 10*3/uL (130-400); RED BLOOD COUNT 4.67 10*6/uL (4.50-5.90); RED CELL DISTRI WIDTH 13.8 % (0-14.5)
[2024-07-24 12:14] LABS: CHOLESTEROL 181 mg/dL (<200); LDL CHOLESTEROL 78 mg/dL (9-159); SGPT/ALT 12 U/L (5-49); TRIGLYCERIDES 130 mg/dl (<150)
[2024-07-24 12:16] LABS: ALKALINE PHOSPHATASE 81 U/L (46-116); BUN 13 mg/dl (9-23); CHLORIDE 94 mmol/L (98-107); POTASSIUM 3.5 mmol/L (3.4-5.1); SGPT/ALT 11 U/L (5-49)
== END | disposition home or self-care (01) ==
LOC: CT 11:00 → LAB 11:01
PROVIDERS: Physician Assistant; ATTEND Internal Medicine Critical Care Medicine
DX: Z51.81 Encounter for therapeutic drug level monitoring (principal); F41.1 Generalized anxiety disorder; J44.9 Chronic obstructive pulmonary disease, unspecified; R91.1 Solitary pulmonary nodule; N40.1 Benign prostatic hyperplasia with lower urinary tract symptoms; E78.5 Hyperlipidemia, unspecified; I12.9 Hypertensive chronic kidney disease with stage 1 through stage 4 chronic kidney disease, or unspecified chronic kidney disease; N18.32 Chronic kidney disease, stage 3b; Z87.891 Personal history of nicotine dependence

== ENCOUNTER 2024-09-16 21:36 | Emergency (ER) | payer MEDICARE ==
[~2024-09-16] VITALS: Ht 162.6 cm; Wt 48.1 kg
[2024-09-16] MEDS ORDERED: SODIUM CHLORIDE 0.9% 1,000 ML IV ONE (22:05)
[2024-09-17] MEDS ORDERED: DERMABOND 1 EA APPL T ONE (00:10)
== END 2024-09-17 00:25 | disposition home or self-care (01) ==
LOC: ED 21:36
DX: S00.83XA Contusion of other part of head, initial encounter (principal); Z79.899 Other long term (current) drug therapy; Z79.82 Long term (current) use of aspirin; Z95.5 Presence of coronary angioplasty implant and graft; Z98.890 Other specified postprocedural states; Z87.891 Personal history of nicotine dependence; W18.39XA Other fall on same level, initial encounter; Y93.89 Activity, other specified; Y92.89 Other specified places as the place of occurrence of the external cause; Y99.8 Other external cause status

== ENCOUNTER 2024-11-08 13:06 | Emergency (ER) | payer MEDICARE ==
[2024-11-08] MEDS ORDERED: SODIUM CHLORIDE 0.9% 1,000 ML IV ONE (13:10)
[2024-11-08 13:40] LABS: BASO # 0.0 10*3/uL (0.0-0.1); BASO % 0.3 % (0.0-1.0); EOS # 0.3 10*3/uL (0.0-0.4); EOS % 2.5 % (1.0-4.0); MEAN CELL VOLUME 101.1 fl (80.0-94.0); MEAN CORPUSCULAR HGB 34.1 pg (27.0-31.0); MEAN PLATELET VOLUME 8.1 fl (9.6-12.3); MONO # 1.2 10*3/uL (0.1-1.0); MONO % 11.4 % (3.0-9.0); NEUT # 8.0 10*3/uL (2.3-7.9); NEUT % 78.3 % (47.0-73.0); NUCLEATED RED BLOOD CELL 0.0 % (0.0-0.0); NUCLEATED RED BLOOD CELL 0.0 10*3/uL (0.0-0.0); PLATELET COUNT AUTOMATED 310 10*3/uL (130-400); RED CELL DISTRI WIDTH 12.2 % (0-14.5)
[2024-11-08 14:01] LABS: BUN 7 mg/dl (9-23); ETHYL ALCOHOL 3.9 mg/dl (<3)
[2024-11-08 14:41] LABS: BILIRUBIN Negative (Negative); BLOOD Negative (Negative); CLARITY Clear (Clear); COLOR Yellow (Yellow); KETONE Negative (Negative); LEUKO ESTERASE 2+ (Negative); NITRITE Negative (Negative); PH 7.0 (4.5-8.0); SPECIFIC GRAVITY <= 1.005 (1.001-1.030); UROBILINOGEN 0.2 E.U./dl (0.0-1.0)
[2024-11-08 14:49] LABS: URINE AMPHETAMINES Negative (1000ng/ml); URINE BARBITURATES Negative (200ng/ml); URINE BENZODIAZEPINES Negative (200ng/ml); URINE CANNABINOIDS (THC) Negative (50ng/ml); URINE COCAINE Negative (300ng/ml); URINE METHADONE Negative (300ng/ml); URINE OPIATES Negative (300ng/ml); URINE PHENCYCLIDINE Negative (25ng/ml)
[2024-11-08 15:16] LABS: BACTERIA 2+; MUCOUS 1+; WBC 21-30 wbc/hpf (0-5)
== END 2024-11-08 14:44 | disposition home or self-care (01) ==
LOC: ED 13:06
PROVIDERS: Emergency Medicine
DX: R53.1 Weakness (principal); F10.90 Alcohol use, unspecified, uncomplicated; R29.6 Repeated falls; I25.10 Atherosclerotic heart disease of native coronary artery without angina pectoris; J44.9 Chronic obstructive pulmonary disease, unspecified; I10 Essential (primary) hypertension; E78.5 Hyperlipidemia, unspecified; Z79.899 Other long term (current) drug therapy; Z79.82 Long term (current) use of aspirin; Z95.5 Presence of coronary angioplasty implant and graft; Z98.890 Other specified postprocedural states; Z87.891 Personal history of nicotine dependence; Y90.0 Blood alcohol level of less than 20 mg/100 ml

== ENCOUNTER 2025-02-02 11:56 | Emergency (ER) | payer MEDICARE ==
[~2025-02-02] VITALS: Ht 152.4 cm; Wt 49.9 kg
[2025-02-02] MEDS ORDERED: CEPHALEXIN500 M1 PO (12:43)
== END 2025-02-02 12:57 | disposition home or self-care (01) ==
LOC: ED 11:56
DX: L03.116 Cellulitis of left lower limb (principal); I25.10 Atherosclerotic heart disease of native coronary artery without angina pectoris; I10 Essential (primary) hypertension; K21.9 Gastro-esophageal reflux disease without esophagitis; J44.9 Chronic obstructive pulmonary disease, unspecified; M19.90 Unspecified osteoarthritis, unspecified site; F41.9 Anxiety disorder, unspecified